=== PATIENT | male | born 1965 | race Caucasian/White ===

== ENCOUNTER → 2018-09-09 06:47 | Outpatient (CLI) | payer OTHER, SELFPAY ==
[2018-08-24 08:27] VITALS: BMI 38.6
--- NOTE | 2018-09-09 11:02 | NEURO_ITS ---
NCS and/or EMG Patient Report Ordering Doctor: Preeti Aparicio DATE OF SERVICE: 09/09/18 Is a bilateral upper extremity elective his like study including bilateral upper extremity nerve conduction study and left upper extremity EMG performed on this 53-year-old male with left-sided symptoms. He reports neck pain and left s houlder pain. He underwent cervical nerve block which helped with his shoulder pain however he also has shooting pain from his elbow to his first 3 digits. There is a bulge disc noted on his MRI of his neck and there is a history of diabetes with a hemoglobin A1c of 7.7. He does not consume alcohol. Bilateral upper extremity sensory and motor nerve conduction study is performed. The median motor and sensory distal latencies are moderate to severely prolonged bilaterally somewhat worse on the left. The ulnar motor conduction velocities are slowed more so on the right, this appears to be non-localizable on either side. Radial sensory responses are normal bilaterally. The F-wave latencies from the left median and left ulnar nerves are prolonged. Left upper extremity and left cervical paraspinal muscles were evaluated by needle electromyography. Muscles evaluated included the abductor pollicis brevis, first dorsal interosseous, abductor pollicis longus, brachioradialis, biceps, triceps, deltoid muscles, and left C5-6 and 7 paraspinal musculature. The abductor pollicis brevis muscle did demonstrate large motor units with early recruitment but absence of pathologic spontaneous activity. The first interosseous also demonstrated early recruitment with large motor units but absence of pathologic spontaneous activity. All other muscles tested including the cervical paraspinal muscles demonstrated normal insertional activity with absence of pathologic spontaneous activity. Impression: Abnormal elective his like study of the bilateral upper extremities demonstrating severe carpal tunnel syndrome bilaterally somewhat worse on the left electrophysiologically as well as non-localizable bilateral ulnar neuropathy. There is no evidence on this study of cervical radiculopathy.
== END ==
PROVIDERS: Family Provider Nurse Practitioner Adult Health; PCP Nurse Practitioner Adult Health; Referring Provider Anesthesiology Pain Medicine; Visit Provider Anesthesiology Pain Medicine
DX: M79.602 Pain in left arm (principal)
CPT/HCPCS: 95886; 95911

== ENCOUNTER → 2019-09-20 15:16 | Outpatient (CLI) | payer OTHER, SELFPAY ==
[2018-08-24 08:27] VITALS: BMI 38.6
--- NOTE | 2019-09-20 15:25 | RAD_ITS ---
STUDY: X-RAY - PELVIS AND RIGHT HIP REASON FOR EXAM: Male, 54 years old. No known injury. Pain in right hip radiating into right lower back and down right leg with numbness and tingling to right foot. TECHNIQUE: 3 views of the pelvis and hip. COMPARISON: None. FINDINGS: There is a non-specific bowel gas pattern. Normal visualized soft tissue structures. Normal bilateral iliac wings, sacroiliac joints and visualized sacrum. Normal bilateral superior and inferior pubic rami. Normal pubic symphysis. Normal bilateral ischial tuberosities. There are osteoarthritic changes of the femoral head with marginal osteophyte formation. Sclerosis of the acetabulum. There is moderate articular joint space narrowing of the hip. RAD/HIP, UNI W/ Pelvis 2-3 Views IMPRESSION: No acute fracture or dislocation. Degenerative changes. Electronically Signed: Romero Best MD at 16:53 EST , Service support ,
== END ==
PROVIDERS: PCP Nurse Practitioner Adult Health; Referring Provider Anesthesiology Pain Medicine; Visit Provider Anesthesiology Pain Medicine
DX: M25.559 Pain in unspecified hip (principal)
CPT/HCPCS: 73502

== ENCOUNTER → 2020-05-01 09:13 | Outpatient (CLI) | payer OTHER, SELFPAY ==
[2020-05-01 08:36] VITALS: BMI 39.3
[2020-05-01 13:46] LABS: AST(SGOT) 19 U/L (15-37); Alanine Aminotransfer ALT/SGPT 34 U/L (16-61); Albumin, Serum 3.8 g/dL (3.2-5.0); Alkaline Phosphatase 127 U/L (45-117); Anion Gap 11 (5-15); BUN 29 mg/dL (7-18); BUN/Creat Ratio 21.5 RATIO (10-20); Calcium,Total 9.3 mg/dL (8.5-10.1); Chloride 97 mmol/L (98-107); Cholesterol 137 mg/dL (200); Creatinine, Serum 1.35 mg/dL (0.70-1.30); EST Glomerular Filtration Rate 58 mL/min (>60); Est Glom Filt Rate - Afr Amer 70 mL/min (>60); Glucose 293 mg/dL (74-106); High Density Lipoprotein 38 mg/dL; Potassium 4.9 mmol/L (3.5-5.1); Protein, Total 7.8 g/dL (6.4-8.2); Sodium Level 132 mmol/L (136-145); Thyroid Stim Hormone (TSH) 1.79 uIU/mL (0.358-3.74); Triglycerides 419 mg/dL
[2020-05-01 13:47] LABS: Microalbumin,Random Urine 17.9 mg/L (NO RANGE EST.); Microalbumin:Creatinine Ratio 36.3 mg/g CRE (<30 mg/g CRE)
== END ==
PROVIDERS: PCP Nurse Practitioner Adult Health; Referring Provider Internal Medicine Endocrinology, Diabetes & Metabolism; Visit Provider Internal Medicine Endocrinology, Diabetes & Metabolism
DX: E11.9 Type 2 diabetes mellitus without complications (principal); E78.2 Mixed hyperlipidemia; I10 Essential (primary) hypertension
CPT/HCPCS: 36415; 80053; 80061; 82043; 82570; 84443

== ENCOUNTER → 2022-11-20 | Outpatient (CLI) | payer OTHER, SELFPAY ==
[2022-11-20 12:40] LABS: Hemoglobin A1c 6.3 % (3.8-5.6)
== END | disposition home or self-care (01) ==
LOC: BIMLAB 08:44
PROVIDERS: PCP Nurse Practitioner Adult Health; Referring Provider Internal Medicine Endocrinology, Diabetes & Metabolism; Visit Provider Internal Medicine Endocrinology, Diabetes & Metabolism
DX: E11.29 Type 2 diabetes mellitus with other diabetic kidney complication (principal); R80.9 Proteinuria, unspecified
CPT/HCPCS: 36415; 83036